=== PATIENT | male | born 1980 | race Hispanic/Latino ===

== ENCOUNTER 2018-03-15 08:20 | Emergency (ER) | payer SELFPAY ==
[2018-03-15 08:38] VITALS: BP 124/76
[2018-03-15] MEDS ORDERED: TORADOL IM ONE (09:18)
[2018-03-15] MEDS ORDERED: PERCOCET 5/325 PO ONE (09:18)
--- NOTE | 2018-03-15 09:25 | Emergency Department Report ---
ED Back Pain/Injury HPI - General Chief Complaint: Back Pain/Injury Stated Complaint: BACK PAIN Time Seen by Provider: 03/15/18 09:18 Source: patient Limitations: No Limitations - History of Present Illness Initial Comments: Mr. Bateman is a 38 yo male with history of back pain for the last year. Symptoms became worse for the last 3 days. He's used [id number] BenGay hot patches and Biofreeze without any relief. Denies any leg weakness or bowel or bladder incontinence. Denies fever or trauma. Gradual onset of severe achy lower back pain. Works in construction. -: Gradual, days(s) (3) Similar Symptoms Previously: Yes Radiation: none Severity: severe Quality: dull, aching Consistency: constant Worsens With: movement Associated Symptoms: denies other symptoms - Related Data Previous Rx's Medication Instructions Recorded Last Taken Type Cyclobenzaprine [Flexeril] 10 mg PO TID PRN #20 tablet 03/15/18 Unknown Rx Ibuprofen 800 mg PO QID 4 Days #16 tablet 03/15/18 Unknown Rx Allergies Allergy/AdvReac Type Severity Reaction Status Date / Time No Known Allergies Allergy Verified 03/15/18 08:36 ED Review of Systems ROS: Stated complaint: BACK PAIN Other details as noted in HPI Comment: All other systems reviewed and negative Constitutional: denies: fever, malaise Cardiovascular: denies: chest pain Gastrointestinal: denies: abdominal pain ED Past Medical Hx - Past Medical History Previous Medical History?: Yes Additional medical history: back pain - Surgical History Past Surgical History?: No - Social History Smoking Status: Current Every Day Smoker Substance Use Type: None - Medications Home Medications: Home Medications Medication Instructions Recorded Confirmed Last Taken Type Cyclobenzaprine [Flexeril] 10 mg PO TID PRN #20 tablet 03/15/18 Unknown Rx Ibuprofen 800 mg PO QID 4 Days #16 tablet 03/15/18 Unknown Rx ED Physical Exam - General Limitations: No Limitations General appearance: alert, in no apparent distress - Head Head exam: Present: atraumatic, normocephalic - Eye Eye exam: Present: normal appearance - ENT ENT exam: Present: mucous membranes moist - Neck Neck exam: Present: normal inspection. Absent: tenderness, meningismus - Respiratory Respiratory exam: Present: normal lung sounds bilaterally. Absent: respiratory distress, wheezes, rales, rhonchi - Cardiovascular Cardiovascular Exam: Present: regular rate, normal rhythm. Absent: systolic murmur, diastolic murmur, rubs, gallop - GI/Abdominal GI/Abdominal exam: Present: soft, normal bowel sounds. Absent: distended, tenderness, guarding, rebound - Rectal Rectal exam: Present: deferred - Extremities Exam Extremities exam: Present: normal inspection - Back Exam Back exam: Present: normal inspection, full ROM, muscle spasm. Absent: tenderness, CVA tenderness (R), CVA tenderness (L), paraspinal tenderness, vertebral tenderness - Neurological Exam Neurological exam: Present: alert, oriented X3, normal gait. Absent: motor sensory deficit - Psychiatric Psychiatric exam: Present: normal affect, normal mood - Skin Skin exam: Present: warm, dry, intact, normal color. Absent: rash ED Course Vital Signs 03/15/18 08:36 Temperature 97.5 F L Pulse Rate 77 Respiratory 20 Rate Blood Pressure 124/76 O2 Sat by Pulse 100 Oximetry ED Medical Decision Making - Medical Decision Making Acute lower back pain without concerning symptoms such as fever, trauma, earl rological disturbance. Normal vital signs. Steady normal gait. Aspect lumbar strain with spasm versus lumbar degenerative disc disease. Given Percocet and IM Toradol in the knee. Prescribed ibuprofen and Flexeril. Critical care attestation.: If time is entered above; I have spent that time in minutes in the direct care of this critically ill patient, excluding procedure time. ED Disposition Clinical Impression: Acute low back pain Disposition: DC-01 TO HOME OR SELFCARE Is pt being admited?: No Does the pt Need Aspirin: No Condition: Stable Instructions: Low Back Strain (ED), Acute Low Back Pain (ED), Chronic Back Pain (ED) Prescriptions: Cyclobenzaprine [Flexeril] 10 mg PO TID PRN #20 tablet PRN Reason: Muscle Spasm Ibuprofen 800 mg PO QID 4 Days #16 tablet Referrals: Dorothy Anderson [Other] - 3-5 Days
== END 2018-03-15 10:35 | disposition home or self-care (01) ==
LOC: ED 08:20
DX: M54.5 Low back pain (principal); F17.200 Nicotine dependence, unspecified, uncomplicated
CPT/HCPCS: 96374; 99283; J1885